=== PATIENT | male | born 1960 | race African-American/Black ===

== ENCOUNTER 2021-01-01 08:24 | Emergency (ER) | payer BC, SELFPAY ==
[2021-01-01] VITALS (22 sets, daily range): BP systolic 122–181; BP diastolic 66–112; PULSE 87–120; RESP 20–35; TEMP 37.6–39.5; O2SAT 96–100
--- NOTE | ~2021-01-01 | XR_ITS ---
EXAMINATION: XR chest 1V portable INDICATION: Cough TECHNIQUE: Portable AP chest at 0933 hours COMPARISON: None available FINDINGS: There are opacities of the lung bases, left greater than right. There is a small left pleur al effusion. There is no pneumothorax. The heart size is normal. IMPRESSION: 1. Bibasilar airspace opacities, left greater than right, consistent with atelectasis versus pneumoni a. 2. Small left pleural effusion. Reviewed, dictated and finalized at location B. IMPRESSION: 1. Bibasilar airspace opacities, left greater than right, consistent with atele ctasis versus pneumonia. 2. Small left pleural effusion.
--- NOTE | ~2021-01-01 | CT_ITS ---
EXAMINATION: CTA chest PE protocol DATE: 01/01/2021 10:25 INDICATION: Shortness of breath and cough TECHNIQUE: Computed tomography angiography (CTA) of the chest was performed with 100 mL Omnipaque-350 intravenous contrast timed to evaluate the pulmonary arteries. Coronal maximum intensity projection 3D-reconstructions were created by the technologist. The dose-length product (DLP) was 1027.99 mGy-cm . Automated exposure control and iterative reconstruction technique were employed. COMPARISON: None. FINDINGS: The pulmonary arteries are well-opacified. No pulmonary embolism is identified. Motion jitendra fact slightly limits the examination. There are trace pleural effusions. There is atelectasis in the lower lobes and lingula. No pneumothorax is identified. No pathologically enlarged thoracic lymph nod es are identified. The heart size is normal. There are bridging osteophytes at multiple levels in the spine, consistent with diffuse idiopathic skeletal hyperostosis (DISH). IMPRESSION: 1. No pulmonary embolism identified. 2. Trace pleural effusions with atelectasis in the lower lobes and lingula. Reviewed, dictated and finalized at location B.
--- NOTE | 2021-01-01 08:39 | ED.GENADULT ---
HPI - General Adult General Chief complaint: Fever <DO Bandar Maki Last Filed: 01/01/21 08:39> Stated complaint: fever, headache <DO Bandar Maki Last Filed: 01/01/21 08:39> Time Seen by Provider: 01/01/21 08:34 <DO Bandar Maki Last Filed: 01/01/21 08:39> Source: patient <ANDRA Brumfield Last Filed: 01/01/21 12:21> Mode of arrival: ambulatory <ANDRA Brumfield Last Filed: 01/01/21 12:21> Limitations: no limitations <ANDRA Brumfield Last Filed: 01/01/21 12:21> History of Present Illness HPI narrative: Patient is a 60-year-old male who presents to emergency department for evaluation of fever chills fatigue and body aches that began Wednesday with fatigue woke up Wednesday with fever which has gradually worsened over the course of the last several days patient denies any URI symptoms. Patient notes he had frequent urination over the course of the night. Patient Tylenol with minimal improvement. Patient presents in no distress does not appear uncomfortable. Patient with 103 fever orally on arrival. Patient last took Tylenol at 4 AM. Patient notes that he did have recent Covid which she recovered from. Patient has not had a Covid vaccine. Patient notes he did start a recent new job but denies any sick contacts <Jim Rogers PA-C - Last Filed: 01/01/21 12:21> Related Data Allergies/adverse reactions: Allergies Allergy/AdvReac Type Severity Reaction Status Date / Time topiramate [From Topamax] AdvReac Rash Verified 01/01/21 09:32 <DO Bandar Maki Last Filed: 01/01/21 08:39> Review of Systems Review of Systems: All systems reviewed & are unremarkable except as noted in HPI and below <ANDRA Brumfield Last Filed: 01/01/21 12:21> Exam Narrative: Exam Narrative: GENERAL: Well-appearing, well-nourished, and in no acute distress. HEAD: Normocephalic, atraumatic. EYES: PERRLA and EOMI. ENT: Nares clear, no rhinorrhea or epistaxis. Mucous membranes moist. Oropharynx without tonsillar hypertrophy exudate or other lesions. NECK: Supple. No adenopathy or masses. No carotid bruits or JVD CHEST: Clear to auscultation. No respiratory distress. No wheezes rales or rhonchi HEART: Regular rate and rhythm. No murmur heard. Normal peripheral pulses. ABDOMEN: Soft, nontender, nondistended EXTREMITIES: Normal range of motion. No edema. SKIN: Warm, dry, no rash. NEURO: No focal deficits. Alert and oriented x3. Cranial nerves II through XII grossly intact PSYCH: Normal mood and affect. <Jim Rogers PA-C - Last Filed: 01/01/21 12:21> Course Course Emergency Course: Patient is a 60-year-old male who presents with fever and fatigue and body aches that began over the course of the last several days patient had had a new job worked over the weekend and on Wednesday began to feel fatigued and developed a fever Wednesday as noted on arrival patient just notes feeling fatigued with fever with some mild achiness. Patient denies any URI symptoms, cardiopulmonary complaints at this time, abdominal complaints, patient was found to have microscopic hematuria and will be referred to urology and primary care for further evaluation of this. Negative influenza and strep. There was no PE or pneumonia on imaging. Patient was given fluids and antipyretics with improvement. Patient is aware of discussion that was made with his primary care to ensure close follow-up. Patient will be reswabbed for Covid. Patient was positive in October for Covid. ABCs and vital signs intact and stable <Jim Rogers PA-C - Last Filed: 01/01/21 12:21> Consultations Consultation #1: Discussed case with Eliana lozada and Dr. Simon's office who will contact patient today to facilitate follow-up. Would also like the results of today to be faxed to the office so they can compare in the follow-up. <Jim Rogers PA-C - Last Filed: 01/01/21 12:21> Kip
--- NOTE | 2021-01-01 08:45 | ECG_ITS ---
Measurements Intervals [place] Rate: 111 P: 70 [place]: 181 QRS: -18 QRSD: 89 T: 58 QT: 300 QTc: 408 Interpretive Statements SINUS TACHYCARDIA POOR R WAVE PROGRESSION, ANTERIOR LEADS BASELINE ARTIFACT- I, III, AVR, AVL, V2 ABNORMAL ECG Electronically Signed On 01-01-2021 8:53:00 CDT by Renan Singh D.O.
[2021-01-01 09:17] LABS: Add Urine Microscopic? YES; Appearance Urine Clear (Clear); Bilirubin Urine Negative (Negative); Blood Urine 1+ (Negative); Color Urine Yellow (Yellow); Glucose Urine UA Negative (Negative); Ketones Urine Negative (Negative); Leukocyte Esterase Ur Negative LEU/UL (Negative); Mucus Urine Rare /lpf; Nitrate Urine Negative (Negative); Protein Urine 2+ mg/dL (Negative); Specific Grav Ur 1.024 (1.001-1.035); WBC Urine 0-3 /hpf
[2021-01-01 09:19] LABS: Hematocrit 37.3 % (42.0-52.0); Hemoglobin 12.5 g/dL (14.0-18.0); Red Blood Count 4.29 M/mm3 (4.6-6.20); White Blood Count 14.8 K/mm3 (4.5-10.0)
[2021-01-01 09:20] LABS: Basophils Percent Auto 0.1 % (0.2-1.2); Eosinophils Percent Auto 0.1 % (0-4.4); Immature Granulocyte Absolute 0.07 K/mm3 (0.00-0.031); Immature Granulocyte Percent A 0.5 % (0-0.5); Lymphocytes Absolute Auto 1.73 K/mm3 (0.9-3.2); Lymphocytes Percent Auto 11.7 % (18.3-44.2); Mean Corpuscular HGB Conc 33.5 g/dl (32-36); Mean Corpuscular Hemoglobin 29.1 pg (26-34); Mean Corpuscular Volume 86.9 fl (80-100); Mean Platelet Volume 10.7 fl (7.4-10.4); Monocytes Absolute Auto 1.2 K/mm3 (0.1-0.6); Monocytes Percent Auto 8.1 % (2.6-8.5); Neutrophils Absolute Auto 11.7 K/mm3 (1.3-6.7); Neutrophils Percent Auto 79.5 % (45.5-73.1); Platelet Count Result 150 k/mm3 (150-375); Red Cell Distribution Width 15.8 % (11.5-14.5)
[2021-01-01 09:29] LABS: Prothrombin Time 14.2 Seconds (11.1-14.7)
[2021-01-01 09:30] LABS: Partial Thromboplastin Time 34.9 SECONDS (22.3-36.8)
[2021-01-01] MEDS: SODIUM CHLORIDE 0.9% IV 1,000 ML 999 ML IV CONT (09:30)
[2021-01-01 09:31] LABS: Lactic Acid Reflex 0.9 mmol/L (0.7-2.1)
[2021-01-01] MEDS: FAMOTIDINE 20 MG/2 ML VIAL IV PUSH (09:34)
[2021-01-01 09:42] LABS: Alanine Aminotransferase 45 U/L (4-50); Alkaline Phosphatase 103 U/L (38-126); Anion Gap 6 mmol/L (8-16); Aspartate Amino Transferase 41 U/L (17-59); Bilirubin,Total 1.3 mg/dL (0.2-1.3); Blood Urea Nitrogen 16 mg/dL (9-20); Calcium 9.2 mg/dL (8.4-10.2); Carbon Dioxide 27 mmol/L (22-30); Chloride 103 mmol/L (98-107); Estimated CRCL calculation 140 ml/min; Estimated Glomerular Filt Rate > 60; Glucose 140 mg/dL (75-110); Potassium 4.3 mmol/L (3.4-5.0); Sodium 136 mmol/L (137-145)
[2021-01-01 09:46] LABS: Troponin I 0.014 ng/mL (0.000-0.034)
[2021-01-01 09:58] LABS: D Dimer 2.47 ug/mL (<0.48)
--- NOTE | 2021-01-01 10:25 | PC.NURSE ---
Pt off floor to CT via cart
--- NOTE | 2021-01-01 12:09 | PC.NURSE ---
1140 ED PA at bedside for reassessment. Pt and updated on POC. Pt resting on cart HOB elevated, non-labored respirations
--- NOTE | 2021-01-01 12:55 | PC.NURSE ---
ED chart faxed to pt's PCP (fax #[phone], attn Brit @ [email or web address]) per ED PA request, pt will f/u with PCP Covid swab collected and sent to lab
[2021-01-01 21:08] LABS: SARS-CoV-2 RNA PCR Negative
== END 2021-01-01 13:12 | disposition home or self-care (01) ==
PROVIDERS: Emergency Medicine Emergency Medical Services; Emergency Provider Emergency Medicine; PCP Internal Medicine
DX: R50.9 Fever, unspecified (principal); R31.9 Hematuria, unspecified; Z20.822 Contact with and (suspected) exposure to COVID-19; R91.8 Other nonspecific abnormal finding of lung field; R00.0 Tachycardia, unspecified; R94.31 Abnormal electrocardiogram [ECG] [EKG]
CPT/HCPCS: 36415; 71045; 71275; 80053; 81001; 83605; 84484; 85025; 85380; 85610; 85730; 87040; 87081; 87804; 87880; 93005; 96361; 96374; 96375; 99284; C9803; J0131; J7030; Q9967; U0003; U0005